=== PATIENT | female | born 1990 | race Hispanic/Latino ===

== ENCOUNTER 2017-02-19 20:12 | Emergency (ER) | payer BC ==
[2017-02-19 20:23] VITALS: BP 138/94; PULSE 93; RESP 16; TEMP 97.7; O2SAT 100
[2017-02-19 21:32] LABS: BASO % 0.3 % (0.0-2.0); EOS # 0.1 K/uL (0.0-0.7); EOS % 1.7 % (0.0-4.0); HEMATOCRIT 37.9 % (34.0-47.0); LYMPH # 2.6 K/uL (1.0-4.3); LYMPH % 35.5 % (20.0-40.0); MEAN CORPUSCULAR HEMOGLOBIN 31.8 pg (27.0-31.0); MEAN CORPUSCULAR HGB CONC 33.8 g/dL (33.0-37.0); MEAN PLATELET VOLUME 7.3 fl (7.2-11.7); MONO # 0.4 K/uL (0.0-0.8); MONO % 5.3 % (0.0-10.0); NEUT # 4.2 K/uL (1.8-7.0); NEUT % 57.2 % (50.0-75.0); RED CELL DISTRIBUTION WIDTH 12.3 % (11.5-14.5); WHITE BLOOD COUNT 7.3 K/uL (4.8-10.8)
[2017-02-19 21:35] LABS: RBC URINE 2 /hpf (0-3); URINE BACTERIA FEW (<OCC); URINE BILIRUBIN NEGATIVE (NEGATIVE); URINE BLOOD SMALL (NEGATIVE); URINE COLOR YELLOW (YELLOW); URINE GLUCOSE (UA) NEG (Normal); URINE KETONE NEGATIVE (NEGATIVE); URINE LEUKOCYTE ESTERASE NEG Leu/uL (Negative); URINE PROTEIN NEGATIVE (NEGATIVE); URINE UROBILINOGEN 0.2-1.0 mg/dL (0.2-1.0); WBC URINE < 1 /hpf (0-5)
[2017-02-19 21:59] LABS: ALB/GLOB RATIO 1.4 (1.0-2.1); ALKALINE PHOSPHATASE 57 U/L (38-126); ALT/SGPT 39 U/L (9-52); AST/SGOT 45 U/L (14-36); BILIRUBIN,TOTAL 1.2 mg/dl (0.2-1.3); BLOOD UREA NITROGEN 12 mg/dl (7-17); CALCIUM 9.4 mg/dL (8.4-10.2); CARBON DIOXIDE 25 mmol/L (22-30); CHLORIDE 103 mmol/L (98-107); GFR AFRICAN-AMERICAN > 60; GLUCOSE,RANDOM 77 mg/dL (65-105); LIPASE 96 U/L (23-300); POTASSIUM 3.8 MMOL/L (3.6-5.0); SODIUM 141 mmol/l (132-148)
--- NOTE | 2017-02-19 22:37 | ED PDOC ---
HPI: Abdomen Time Seen by Provider: 02/19/17 20:56 Chief Complaint (Nursing): Abdominal Pain Chief Complaint (Provider): Abdominal Pain/Flank Pain History Per: Patient History/Exam Limitations: no limitations Onset/Duration Of Symptoms: Days (x3 weeks) Current Symptoms Are (Timing): Still Present Additional Complaint(s): 20:56 Carli Bo is a 26 year old female with a history of frequent UTIs that presents to the ED with a chief complaint of abdominal pain that is more prominent in her upper abdomen and radiated to her lower back, along with flank pain that she has been experiencing for the past two weeks. Patient states that the pain fluctuates between a 2 and a 6, and denies any cough, shortness of breath, nausea, vomiting, diarrhea, or any urinary symptoms. She also reports that in the past she has had kidney infections. Of Note: Patient has pending appointment with her improvement advisor. Past Medical History Reviewed: Historical Data, Nursing Documentation, Vital Signs Vital Signs: Last Vital Signs Temp 97.7 F 02/19/17 20:20 Pulse 93 H 02/19/17 20:20 Resp 16 02/19/17 20:20 BP 138/94 H 02/19/17 20:20 Pulse Ox 100 02/20/17 00:25 - Medical History Other PMH: Frequent UTIs, Kidney Infection - Surgical History Other surgeries: breast implants - Family History Family History: States: Unknown Family Hx - Home Medications Home Medications: Ambulatory Orders Medication Instructions Recorded Cyclobenzaprine [Cyclobenzaprine 10 mg PO BID 06/03/16 HCl] Naproxen 1 tab PO BID PRN #14 tab 06/03/16 Oxycodone HCl/Acetaminophen 1 each PO Q4 PRN #5 tablet 06/03/16 [Percocet 5-325 mg Tablet] diaZEpam [Valium] 5 mg PO Q8 PRN #2 tab 06/03/16 traMADol [Ultram] 50 mg PO TID 06/03/16 Dicyclomine [Bentyl] 20 mg PO Q12 PRN #20 tab 02/19/17 - Allergies Allergies/Adverse Reactions: Allergies Allergy/AdvReac Type Severity Reaction Status Date / Time No Known Allergies Allergy Verified 06/03/16 15:08 Review of Systems Constitutional: Negative for: Fever Respiratory: Negative for: Cough, Shortness of Breath Gastrointestinal: Positive for: Abdominal Pain (more concentrated in upper abdomen). Negative for: Nausea, Vomiting, Diarrhea Genitourinary Female: Negative for: Other (denies urinary symptoms) Musculoskeletal: Positive for: Back Pain (lower back) Physical Exam - Reviewed Nursing Documentation Reviewed: Yes Vital Signs Reviewed: Yes - Physical Exam Appears: Positive for: Non-toxic, No Acute Distress Head Exam: Positive for: ATRAUMATIC, NORMOCEPHALIC Skin: Positive for: Warm, Dry Cardiovascular/Chest: Positive for: Regular Rate, Rhythm. Negative for: Murmur Respiratory: Positive for: Normal Breath Sounds. Negative for: Wheezing Gastrointestinal/Abdominal: Positive for: Soft. Negative for: Tenderness Back: Positive for: Normal Inspection Neurologic/Psych: Positive for: Alert, Oriented - Laboratory Results Result Diagrams: 02/19/17 21:20 02/19/17 21:20 - ECG O2 Sat by Pulse Oximetry: 100 (RA) Pulse Ox Interpretation: Normal Medical Decision Making Medical Decision Makin:55 Initial Impression: 26 year old female with Abdominal Pain and Back Pain in setting of frequent UTIs Initial Plans: * Urine * Urine dip * US Abdomen * Reevaluation US ABDOMEN FINDINGS: Liver: Normal echogenicity. No mass. No intrahepatic bile duct dilatation. Gallbladder: No gallstones. No wall thickening. No pericholecystic fluid. No sonographic Sotomayor's sign. Common bile duct: No dilatation. No stones. Pancreas: Unremarkable as visualized. Kidneys: Normal echogenicity. No hydronephrosis. Spleen: No splenomegaly. Aorta: No aneurysm. Inferior vena cava: Unremarkable. Free fluid: No significant free fluid. IMPRESSION: 1. No acute findings. 2. Non-acute findings are described above. 23:00 Labs were reviewed with no clinically significant abnormalities. Explained results at length to pt. Pt notes she has an appointment scheduled with her OBGYN, whom she will follow up with within 1-2 days. Pt persistently denied pain medications as she reported pain resolved on its own. At this time, pt will be discharged routinely with an Rx for Bentyl. Advised to return if condition persists or worsen. Condition is stable. Clinical impression- abdominal pain Scribe Attestation: Documented by Anni Allison, acting as a scribe for Josiah Jonas MD. Provider Scribe Attestation: All medical record entries made by the Scribe were at my direction and personally dictated by me. I have reviewed the chart and agree that the record accurately reflects my personal performance of the history, physical exam, medical decision making, and the department course for this patient. I have also personally directed, reviewed, and agree with the discharge instructions and disposition. Disposition - Clinical Impression Clinical Impression: Abdominal pain in female - Disposition Disposition: Routine/Home Disposition Time: 23:00 Condition: STABLE Additional Instructions: Please follow up with your Database Management System Specialist as scheduled Return for any worsening in your condition Prescriptions: Dicyclomine [Bentyl] 20 mg PO Q12 PRN #20 tab PRN Reason: abdominal pain Instructions: Abdominal Pain (ED)
--- NOTE | 2017-02-20 10:28 | US ---
HISTORY: Abdominal pain, flank pain. History of digestive "Issues and constipation" . COMPARISON: None. TECHNIQUE: Sonographic evaluation of the abdomen. FINDINGS: LIVER: Measures 14.1 cm. Patent portal vein. Portal venous flow: Hepatopetal. Unremarkeable echogenicity of the liver parenchyma. No mass. No intrahepatic bile duct dilatation. GALLBLADDER: Unremarkable. No gallstones. COMMON BILE DUCT: Measures 3.6 mm. No stones. No dilatation. PANCREAS: Unremarkable as visualized. No mass. No ductal dilatation. RIGHT KIDNEY: Measures 10.2 x 4.1cm. Normal echogenicity. No calculus, mass, or hydronephrosis. LEFT KIDNEY: Measures 10.2 x 4.8cm. Normal echogenicity. No calculus, mass, or hydronephrosis. SPLEEN: Normal in size and contour. No mass. AORTA: No aneurysmal dilatation. IVC: Unremarkable. OTHER FINDINGS: None. IMPRESSION: No significant or acute findings to account for/ related to the clinical presentation. Concordant results (preliminary interpretation) provided by [facility]. Procedure Completed: 23:22. Preliminary ([facility]) Report: Dictated and Authenticated: 11:34. Final Interpretation: 10:27. February 20, 2017.
== END 2017-02-20 00:08 | disposition home or self-care (01) ==
LOC: H.ER 20:12
DX: R10.9 Unspecified abdominal pain (principal); M54.9 Dorsalgia, unspecified